=== PATIENT | female | born 1955 | race Caucasian/White ===

== ENCOUNTER 2021-03-21 21:01 | Emergency (ER) | payer OTHER, MEDICARE ==
[2021-03-21 21:20] VITALS: TEMP 98.3; BMI 32.8
[2021-03-21 23:43] LABS: BASO % 0.5 % (0-2.0); HEMATOCRIT 33.2 % (32.4-45.2); HEMOGLOBIN 11.5 GM/dL (10.7-15.3); LYMPH % 16.2 % (8-40); MCH 33.1 pg (25.7-33.7); MCHC 34.7 g/dl (32.0-36.0); MEAN CELL VOLUME 95.6 fl (80-96); MEAN PLT VOLUME 7.8 fl (7.5-11.1); MONO % 7.6 % (3.8-10.2); NEUT % 74.7 % (42.8-82.8); PLATELET COUNT 167 10^3/uL (134-434); RBC 3.48 M/mm3 (3.60-5.2); RDW 13.3 % (11.6-15.6); WHITE BLOOD COUNT 9.3 K/mm3 (4.0-10.0)
[2021-03-21 23:50] LABS: INR 1.03 (0.83-1.09)
[2021-03-22 00:01] LABS: CHLORIDE 107 mmol/L (98-107); SODIUM 142 mmol/L (136-145)
[2021-03-22 00:03] LABS: CALCIUM 9.3 mg/dL (8.5-10.1)
[2021-03-22 00:04] LABS: ANION GAP 6 MMOL/L (8-16); BLOOD UREA NITROGEN 12.9 mg/dL (7-18); CO2 29 mmol/L (21-32); GLUCOSE,RANDOM 123 mg/dL (74-106)
[2021-03-22 00:07] LABS: SGOT/AST 15 U/L (15-37); SGPT/ALT 17 U/L (13-61)
[2021-03-22 00:08] LABS: TOT PROT 7.5 g/dl (6.4-8.2)
[2021-03-22 00:09] LABS: ALK PHOS 68 U/L (45-117)
[2021-03-22 01:12] VITALS: BP 151/81; PULSE 96
== END 2021-03-22 01:12 | disposition home or self-care (01) ==
LOC: JER 21:01
DX: M79.604 Pain in right leg (principal); S80.11XA Contusion of right lower leg, initial encounter; Y99.9 Unspecified external cause status
CPT/HCPCS: 36415; 70450-TC; 72125-TC; 72192-TC; 73552-TC-RT-FY; 73562-TC-RT-FY; 73590-TC-RT-FY; 80053; 82550; 84484; 85025; 85610; 85730; 93005; 93010; 93970-TC; 99285-25; C9803; U0003; U0005

== ENCOUNTER 2021-07-28 04:36 | Day surgery (SDC) | payer OTHER, MEDICARE ==
[2021-07-27 09:10] VITALS: BMI 31.8
[2021-07-28] MEDS ORDERED: DEXAMETHASONE SOD PHOSPHATE 10 MG/1 ML VIAL ONE (09:18)
[2021-07-28] MEDS ORDERED: ROPIVACAINE HCL 0.5% 30ML VIAL ONE (09:19)
[2021-07-28] MEDS ORDERED: MIDAZOLAM HCL 2 MG/2 ML SINGLE DOSE VIAL ONE ×2 (09:20)
[2021-07-28] MEDS ORDERED: ceFAZolin SODIUM 1 GM VIAL IVPB ONE ×2 (10:05→10:13)
[2021-07-28] MEDS ORDERED: ONDANSETRON 4 MG/2 ML VIAL IVPUSH PRN (11:03)
[2021-07-28 15:41] VITALS: BP 116/51; PULSE 98; TEMP 97
== END 2021-07-28 14:13 | disposition home or self-care (01) ==
LOC: JASU-SURG 04:36
PROVIDERS: ATTEND Orthopaedic Surgery
PROC: 0LM24ZZ Reattachment of Left Shoulder Tendon, Percutaneous Endoscopic Approach (ICD-10-PCS; 2021-07-28)
PROC: 0RNK4ZZ Release Left Shoulder Joint, Percutaneous Endoscopic Approach (ICD-10-PCS; principal; 2021-07-28 10:00)
DX: M75.102 Unspecified rotator cuff tear or rupture of left shoulder, not specified as traumatic (principal)
CPT/HCPCS: 94760; J1100